=== PATIENT | male | born 1975 | race Caucasian/White ===

== ENCOUNTER 2021-05-03 11:42 | Day surgery (SDCO) | payer OTHER ==
[~2021-05-03] VITALS: Ht 167.6 cm; Wt 107.1 kg
[2021-05-03 12:08] LABS: BASOPHIL 0.8 % (0-2); EOSINOPHIL 2.2 % (0-5); HCT 46.9 % (42.0-52.0); HGB 16.4 g/dl (13.2-18.0); MCH 30.5 pg (25.0-31.0); MCV 87.3 fL (78.0-100.0); MONOCYTE 5.5 % (0-12); MPV 9.7 fL (6.0-9.5); NEUTROPHIL 69.3 % (41-80); NRBC 0; PLT 243 K/uL (150-400); RBC 5.37 M/uL (4.70-6.00); RDW 13.2 % (11.5-14.0); WBC 8.6 K/uL (4.0-10.5)
[2021-05-03 12:17] LABS: INR 0.98 (0.9-1.2); PROTHROMBIN TIME 12.4 SECONDS (11.8-13.4); PTT 29.6 SECONDS (24.4-34.7)
[2021-05-03 12:24] LABS: BILIRUBIN - TOTAL 0.9 mg/dL (0.2-1.0); BUN/CREAT RATIO (CALC) 13.8 RATIO; CREATININE 0.8 mg/dL (0.67-1.17); GLOBULIN (CALCULATION) 3.3 g/dL; MAGNESIUM 1.7 mg/dL (1.8-2.4); POTASSIUM 4.5 mmol/L (3.5-5.1); TOTAL PROTEIN 7.3 g/dL (6.4-8.2)
[2021-05-03] MEDS ORDERED: JANUVIA100 MG PO (17:18)
[2021-05-03] MEDS ORDERED: CELEBREX **OUT100 MG PO (17:19)
[2021-05-03] MEDS ORDERED: COREG12.5 MG PO (17:19)
[2021-05-03] MEDS ORDERED: GLIPIZIDE10 MG PO (17:20)
[2021-05-03] MEDS ORDERED: PRINIVIL10 MG PO (17:21)
[2021-05-03] MEDS ORDERED: PRILOSEC20 MG PO (17:22)
[2021-05-03] MEDS ORDERED: ZOCOR20 MG PO (17:22)
[2021-05-03] MEDS ORDERED: METFORMIN HCL500 MG PO (17:22)
[2021-05-03] MEDS ORDERED: FLONASE ALLER15.8 ML (17:29)
[2021-05-03] MEDS ORDERED: OZEMPIC0.25 MG/0. SC (18:23)
[2021-05-03] MEDS ORDERED: ASPIRIN81 MG PO (18:24)
[2021-05-04 06:03] LABS: BASOPHIL 0.6 % (0-2); EOSINOPHIL 2.6 % (0-5); HCT 48.2 % (42.0-52.0); HGB 15.9 g/dl (13.2-18.0); LYMPHOCYTE 34.4 % (15-48); MCH 30.6 pg (25.0-31.0); MONOCYTE 9.8 % (0-12); NEUTROPHIL 52.2 % (41-80); NRBC 0; PLT 204 K/uL (150-400); RDW 13.4 % (11.5-14.0); WBC 8.1 K/uL (4.0-10.5)
[2021-05-04 06:06] LABS: MCV 92.7 fL (78.0-100.0)
[2021-05-04 06:38] LABS: ALBUMIN 3.5 g/dL (3.4-5.0); BILIRUBIN - TOTAL 0.6 mg/dL (0.2-1.0); BUN/CREAT RATIO (CALC) 13.1 RATIO; CREATININE 0.84 mg/dL (0.67-1.17); TOTAL PROTEIN 6.5 g/dL (6.4-8.2)
[2021-05-06 07:08] LABS: HBSAG SCREEN Negative (Negative); HEP A AB, IGM Negative (Negative); HEP B CORE AB, IGM Negative (Negative); HEP C VIRUS AB 0.2 (0.0-0.9)
== END 2021-05-04 12:15 | disposition home or self-care (01) ==
LOC: FER 11:42 → FTCU 14:06 → FMS 14:06 → FTCU 14:07
PROVIDERS: Emergency Medicine; ADMIT Family Medicine
DX: R07.9 Chest pain, unspecified (principal); U07.1 COVID-19; E11.65 Type 2 diabetes mellitus with hyperglycemia; I10 Essential (primary) hypertension; E83.42 Hypomagnesemia; E78.5 Hyperlipidemia, unspecified; E66.9 Obesity, unspecified; R74.01 Elevation of levels of liver transaminase levels; F17.210 Nicotine dependence, cigarettes, uncomplicated; Z79.82 Long term (current) use of aspirin; Z79.84 Long term (current) use of oral hypoglycemic drugs; Z79.899 Other long term (current) drug therapy; Z68.38 Body mass index [BMI] 38.0-38.9, adult; Z82.49 Family history of ischemic heart disease and other diseases of the circulatory system
CPT/HCPCS: 36415; 71045; 80053; 80061; 80074; 82962; 83036; 83735; 84443; 84484; 85025; 85379; 85610; 85730; 93005; 94010; G0378; J1650; J3475; U0002